=== PATIENT | male | born 1945 | race Caucasian/White ===

== ENCOUNTER 2018-02-16 10:56 | Emergency (ER) | payer MEDICARE, BC ==
[2018-02-16] MEDS ORDERED: DIPH/PERTUSS(ACELL)/TETANUS VAC/PF 0.5 ML SYR (>=10YO) IM ONE (11:26)
[2018-02-16] MEDS ORDERED: CEFAZOLIN 2 GM/D5W RTU 2 GM/50 ML RTUPB IV ONE (11:26)
--- NOTE | 2018-02-16 11:30 | ER Document Report ---
ED Medical Screen (RME) - General Chief Complaint: Leg Injury Stated Complaint: LEFT LEG PAIN Time Seen by Provider: 02/16/18 11:22 Mode of Arrival: Wheelchair Information source: Patient Notes: Patient said this morning around 9am a big plywood on his left leg. To call somebody to come and lift up the heavy object before he could get up. He sustained a laceration on the anterior portion of the left lower leg. Patient is not sure the last time he had a tetanus shot. I have greeted and performed a rapid initial assessment of this patient. A comprehensive ED assessment and evaluation of the patient, analysis of test results and completion of the medical decision making process will be conducted by additional ED providers. TRAVEL OUTSIDE OF THE [place] IN LAST 30 DAYS: No - Related Data Allergies/Adverse Reactions: No Known Allergies Allergy (Verified 08/09/12 17:16) Past Medical History Neurological Medical History: Reports: Hx Seizures Renal/ Medical History: Denies: Hx Peritoneal Dialysis - Immunizations Hx Diphtheria, Pertussis, Tetanus Vaccination: No - greater than 5 years Physical Exam - Vital signs Vitals: Temp Pulse Resp BP Pulse Ox 97.3 F 58 L 16 141/64 H 97 02/16/18 11:08 02/16/18 11:08 02/16/18 11:08 02/16/18 11:08 02/16/18 11:08 Course - Vital Signs Vital signs: Temp Pulse Resp BP Pulse Ox 97.3 F 58 L 16 141/64 H 97 02/16/18 11:08 02/16/18 11:08 02/16/18 11:08 02/16/18 11:08 02/16/18 11:08
[2018-02-16 12:14] LABS: ABSOLUTE BASOPHILS # (AUTO) 0.1 10^3/uL (0.0-0.2); ABSOLUTE EOSINOPHILS # (AUTO) 0.3 10^3/uL (0.0-0.6); ABSOLUTE LYMPHOCYTES (AUTO) 1.9 10^3/uL (0.5-4.7); ABSOLUTE MONOCYTES (AUTO) 0.8 10^3/uL (0.1-1.4); ABSOLUTE NEUT (AUTO) 5.5 10^3/uL (1.7-8.2); BASOPHILS % (AUTO) 0.9 % (0-2); EOSINOPHILS % (AUTO) 3.9 % (0-6); HEMATOCRIT 43.2 % (37.9-51.0); HEMOGLOBIN 14.6 g/dL (13.5-17.0); LYMPHOCYTES % (AUTO) 21.7 % (13-45); MEAN CORPUSCULAR HEMOGLOBIN 29.2 pg (27.0-33.4); MEAN CORPUSCULAR HGB CONC 33.8 g/dL (32.0-36.0); MEAN CORPUSCULAR VOLUME 87 fl (80-97); MONOCYTES % (AUTO) 9.7 % (3-13); PLATELET COUNT 225 10^3/uL (150-450); RED BLOOD COUNT 4.99 10^6/uL (4.35-5.55); RED CELL DISTRIBUTION WIDTH 14.2 % (11.5-14.0); SEGMENTED NEUTROPHILS % (AUTO) 63.8 % (42-78); TOTAL CELLS COUNTED % (AUTO) 100 %; WHITE BLOOD COUNT 8.6 10^3/uL (4.0-10.5)
--- NOTE | 2018-02-16 12:18 | RADIOLOGY REPORT (SQ) ---
EXAM DESCRIPTION: TIBIA FIBULA LEFT COMPLETED DATE/TIME: 02/16/2018 11:57 am REASON FOR STUDY: Crush injury COMPARISON: None. NUMBER OF VIEWS: Two views. TECHNIQUE: Two radiographic images acquired of the left tibia and fibula to include the knee and ank le in at least one projection. LIMITATIONS: Study is limited as the distal tibia and fibula were not included on the images obtaine d. FINDINGS: MINERALIZATION: Normal. BONES: No acute fracture or dislocation. There is some deformity of the proximal fibula presumably r elated to previous trauma. There is some cortical thickening involving the proximal tibia with 2 ort hopedic screws being identified presumably related to previous trauma. SOFT TISSUES: No obvious swelling or foreign body. OTHER: Patient is status post left total knee replacement. IMPRESSION: Limited study as noted above. No evidence for acute fracture or dislocation. Other fin dings as noted above TECHNICAL DOCUMENTATION: JOB ID: [id number] [email or web address]- All Rights Reserved Reading location - IP/workstation name: [email or web address]
[2018-02-16 12:19] LABS: INTERNATIONAL RATION (INR) 1.01; PROTHROMBIN TIME 13.8 SEC (11.4-15.4)
[2018-02-16 12:20] LABS: PARTIAL THROMBOPLASTIN TIME 29.3 SEC (23.5-35.8)
--- NOTE | 2018-02-16 12:24 | RADIOLOGY REPORT (SQ) ---
EXAM DESCRIPTION: ANKLE LEFT COMPLETE COMPLETED DATE/TIME: 02/16/2018 11:57 am REASON FOR STUDY: pain COMPARISON: None. NUMBER OF VIEWS: Three views. TECHNIQUE: AP, lateral, and oblique radiographic images acquired of the left ankle. LIMITATIONS: None. FINDINGS: MINERALIZATION: Normal. BONES: No acute fracture or dislocation. No worrisome bone lesions. JOINTS: No effusions. SOFT TISSUES: No soft tissue swelling. No foreign body. OTHER: Plantar and Achilles tendon spurring is identified. IMPRESSION: NO RADIOGRAPHIC EVIDENCE OF ACUTE INJURY. Other findings as noted above TECHNICAL DOCUMENTATION: JOB ID: [id number] [employer]- All Rights Reserved Reading location - IP/workstation name: [email or web address]
--- NOTE | 2018-02-16 12:26 | ER Document Report ---
ED Extremity Problem, Lower - General Chief Complaint: Leg Injury Stated Complaint: LEFT LEG PAIN Time Seen by Provider: 02/16/18 11:22 Mode of Arrival: Wheelchair Notes: 72-year-old male to the emergency department for evaluation of laceration to the left lower extremity. It is that he was getting ready for her cane Mary Ann preparation. Some sheets of plywood fell on his left leg. Has a previous history of fracture with pins. Laceration occurred at approximately 9 AM. Unknown when last tetanus was. Denies any other symptoms at this time. TRAVEL OUTSIDE OF THE [place] IN LAST 30 DAYS: No - HPI Patient complains to provider of: Injury, Pain. No: Altered sensation Location: Leg Occurred: Just prior to arrival Where: Home - Related Data Allergies/Adverse Reactions: No Known Allergies Allergy (Verified 08/09/12 17:16) Past Medical History - General Information source: Patient - Social History Smoking Status: Never Smoker Frequency of alcohol use: None Lives with: Spouse/Significant other Family History: Reviewed & Not Pertinent Patient has suicidal ideation: No Patient has homicidal ideation: No Neurological Medical History: Reports: Hx Seizures Renal/ Medical History: Denies: Hx Peritoneal Dialysis - Immunizations Hx Diphtheria, Pertussis, Tetanus Vaccination: No - greater than 5 years Review of Systems - Review of Systems Notes: Constitutional: denies: Chills, Diaphoresis, Fever, Malaise, Weakness EENT: denies: Eye discharge, Blurred vision, Tearing, Double vision, Nose congestion, Nose discharge, Throat swelling, Mouth pain Cardiovascular: denies: Palpitations, Heart racing, Orthopnea, Dyspnea, Chest pain Respiratory: denies: Cough, Hurts to breathe, Wheezing, Shortness of breath Gastrointestinal: denies: Abdominal pain, Diarrhea, Nausea, Vomiting, Black stools, bright red blood in stool Genitourinary: denies: Burning, Dysuria, Discharge, Frequency, Flank pain, Hematuria Musculoskeletal: Complains of pain in the left anterior ramirez area with laceration. Hematologic/Lymphatic: denies: Anemia, Easy bleeding, Easy bruising, Blood clots Neurological/Psychological: denies: Confusion, Dementia, Depression, Loss of consciousness Skin: No lesions, no masses, no skin breakdown, no abscesses. There is a laceration to the left anterior ramirez area. Physical Exam - Vital signs Vitals: Temp Pulse Resp BP Pulse Ox 97.3 F 58 L 16 141/64 H 97 02/16/18 11:08 02/16/18 11:08 02/16/18 11:08 02/16/18 11:08 02/16/18 11:08 Interpretation: Normal - General General appearance: Appears well, Alert - Respiratory Respiratory status: No respiratory distress Chest status: Nontender Breath sounds: Normal Chest palpation: Normal - Cardiovascular Rhythm: Regular Heart sounds: Normal auscultation Murmur: No - Extremities General upper extremity: Normal inspection, Nontender, Normal color, Normal ROM , Normal temperature General lower extremity: Normal inspection, Tender, Normal color, Normal ROM, Normal temperature, Normal weight bearing, Other - Tenderness to palpation left anterior ramirez with laceration noted. No: Maria M's sign - Skin Skin Temperature: Warm Skin Moisture: Dry Skin Color: Normal, Other - There is a 3 cm stellate laceration to the left anterior ramirez. Course - Re-evaluation Re-evalutation: 02/16/18 12:32 At this time will update tetanus. Due to the fact that board was 30 will irrigate thoroughly and given initial dose of some antibiotics. 02/16/18 14:11 Laboratory 02/16/18 02/16/18 02/16/18 11:58 11:58 11:58 WBC 8.6 RBC 4.99 Hgb 14.6 Hct 43.2 MCV 87 MCH 29.2 MCHC 33.8 RDW 14.2 H Plt Count 225 Seg Neutrophils % 63.8 Lymphocytes % 21.7 Monocytes % 9.7 Eosinophils % 3.9 Basophils % 0.9 Absolute Neutrophils 5.5 Absolute Lymphocytes 1.9 Absolute Monocytes 0.8 Absolute Eosinophils 0.3 Absolute Basophils 0.1 PT 13.8 INR 1.01 APTT 29.3 Sodium 139.2 Potassium 4.2 Chloride 101 Carbon Dioxide 28 Anion Gap 10 BUN 16 Creatinine 0.85 Est GFR ( Amer) > 60 Est GFR (Non-Af Amer) > 60 Glucose 82 Calcium 9.1 Creatine Kinase 85 Tibia/Fibula X-Ray 02/16/18 11:26 IMPRESSION: Limited study as noted above. No evidence for acute fracture or dislocation. Other findings as noted above Ankle X-Ray 02/16/18 11:37 IMPRESSION: NO RADIOGRAPHIC EVIDENCE OF ACUTE INJURY. Other findings as noted above 02/16/18 14:12 Laceration was repaired. No complications. Will DC at this time. - Vital Signs Vital signs: Temp Pulse Resp BP Pulse Ox 97.3 F 58 L 16 141/64 H 97 02/16/18 11:08 02/16/18 11:08 02/16/18 11:08 02/16/18 11:08 02/16/18 11:08 - Laboratory Result Diagrams: 02/16/18 11:58 02/16/18 11:58 Laboratory results interpreted by me: 02/16/18 11:58 RDW 14.2 H Procedures - Laceration/Wound Repair Left Lower Leg Time completed: 14:10 Wound length (cm): 3 Wound's Depth, Shape: Irregular, Stellate Laceration pre-procedure: Chloraprep applied, Shur-Clens applied Anesthetic type: 1% Lidocaine Volume Anesthetic (mLs): 8 Wound explored: Clean, No foreign body removed Irrigated w/ Saline (mLs): 500 Wound Repaired With: Sutures Suture Size/Type: 3:0, Prolene Number of Sutures: 7 Layer Closure?: No Post-procedure wound care: Sterile dressing applied Post-procedure NV exam normal: Yes Complications: No Discharge - Discharge Clinical Impression: Laceration of left lower leg Qualifiers: Encounter type: initial encounter Qualified Code(s): S81.812A - Laceration without foreign body, left lower leg, initial encounter Condition: Good Disposition: HOME, SELF-CARE Instructions: Laceration Care ([facility]), Tetanus Immunization Given ([facility]) Additional Instructions: Return immediately if he is noticed any redness or swelling, fever, chills or other symptoms. Sutures out in 14 days. Referrals: JB REZA MD [Primary Care Provider] - Follow up as needed
[2018-02-16] MEDS ORDERED: LIDOCAINE 1% INJ-PF (10 MG/ML) 30 ML SDV INJ ONE (12:27)
[2018-02-16 12:29] LABS: ANION GAP 10 (5-19); BLOOD UREA NITROGEN 16 mg/dL (7-20); CALCIUM 9.1 mg/dL (8.4-10.2); CARBON DIOXIDE 28 mmol/L (22-30); CHLORIDE 101 mmol/L (98-107); CREATINE KINASE 85 U/L (55-170); GLUCOSE 82 mg/dL (75-110); POTASSIUM 4.2 mmol/L (3.6-5.0); SODIUM 139.2 mmol/L (137-145)
[2018-02-16 14:34] VITALS: BP 145/70
== END 2018-02-16 14:35 | disposition home or self-care (01) ==
LOC: ER 10:56
PROC: 0HQLXZZ Repair Left Lower Leg Skin, External Approach (ICD-10-PCS; principal; 2018-02-16)
DX: S81.812A Laceration without foreign body, left lower leg, initial encounter (principal); W45.8XXA Other foreign body or object entering through skin, initial encounter; W20.8XXA Other cause of strike by thrown, projected or falling object, initial encounter
CPT/HCPCS: 99283; 90471; 96365; 36415; 82550; 85025; 85610; 85730; 80048; 73610; 73590; 90715; 12002; J3490; J0690